=== PATIENT | female | born 1940 | race Two or more races ===

== ENCOUNTER → 2017-12-10 | Outpatient (CLI) | payer OTHER, MEDICAID | LOC: FIMAGING 14:39 | DX: M51.34 Other intervertebral disc degeneration, thoracic region (principal) ==

== ENCOUNTER 2018-02-05 02:03 | Inpatient (IN) | payer OTHER, MEDICAID ==
[2018-02-05] MEDS ORDERED: NS 1,000 ML IV ONE (02:31)
[2018-02-05 02:51] LABS: PLATELET COUNT 351 10^3/uL (150-400)
--- NOTE | 2018-02-05 04:01 | EDPHY ---
H & P Stated Complaint: LETHARGIC SINCE THIS MARTIN AB, WBC TODAY: 20, HAS DNR Time Seen by Provider: 02/05/18 02:18 HPI/ROS: HPI The patient presents with generalized fatigue and lethargy for the last 2-3 days. She is brought in by ambulance from [facility] where she has been residing for over a year after a stroke. She has been more tired than usual. Normally she is awake and oriented, however lately she has been speaking softly and seems more tired. Some basic labs were checked today and she was found have a leukocytosis, thus she was sent to the emergency department for further evaluation. Her son who visits her daily says that her energy level does seem very low. He has been encouraging her to drink fluids, however she has had difficulty with this. As he says this reminds him of when she has had urinary tract infections in the past. She has a MOST form with her indicating she is comfort measures only. I discussed this with her son as antibiotics are not usually indicated with comfort measures. He says that if there is an easily reversible cause such as urinary tract infection that she would want to be treated. Patient is able to agree with this. REVIEW OF SYSTEMS 10 systems were reviewed and negative with the exception of the elements mentioned in the history of present illness. PMHx: History of CVA Soc Hx: Resides at [facility] PHYSICAL General Appearance: Tired appearing in no acute distress, speaks in quiet voice Eyes: Pupils equal and round no pallor or injection ENT, Mouth: Mucous membranes dry Respiratory: There are no retractions, lungs are clear to auscultation Cardiovascular: Regular rate and rhythm Gastrointestinal: Abdomen is soft and non-tender, no masses, bowel sounds normal Neurological: A&O, moves all extremities Skin: Warm and dry, no rashes Musculoskeletal: Neck is supple non tender Extremities: symmetrical, full range of motion Psychiatric: Patient is oriented X 3, there is no agitation Source: Patient, Family, Old records Exam Limitations: No limitations - Personal History Current Tetanus/Diphtheria Vaccine: Unsure - Medical/Surgical History Hx Asthma: No Hx Chronic Respiratory Disease: No Hx Diabetes: Yes Hx Cardiac Disease: Yes Hx Renal Disease: Yes Hx Cirrhosis: No Hx Alcoholism: No Hx HIV/AIDS: No Hx Splenectomy or Spleen Trauma: No Other PMH: CVA- L SIDE WEAK, CAD, DIABETES, HTN, HYPOTHYROID, HYPERCHOL, AMS, HYPERKALEMIA Constitutional: Initial Vital Signs O2 Sat (%) 96 02/05/18 01:55 O2 Delivery Mode Nasal Cannula O2 (L/minute) 2 Allergies/Adverse Reactions: No Known Allergies Allergy (Unverified 02/05/18 02:19) Home Medications: Medication Instructions Recorded levOFLOXACIN [Levofloxacin] 750 mg PO DAILY #7 tablet 02/05/18 Medical Decision Making Differential Diagnosis: This is a 77-year-old female status post CVA, requiring help with her transfers , alert and oriented usually, also history of hypertension, diabetes, hyperlipidemia who presents from [facility] where she has been living for the last year or so with decreased mental status for the last several days though worse tonight. Blood work was done at [facility] and patient was found to have a leukocytosis of 20,000. She was sent here for further care and is brought in by ambulance. Here, vital signs are normal, patient does appear quite tired and lethargic. Her exam is unremarkable otherwise. We discussed goals of care with her son who visits her daily, he would like us to perform basic laboratory testing to check for easily reversible causes of the patient's weakness. Here, leukocytosis was confirmed. BUN is quite elevated at 70 and creatinine is also elevated to 1.8. UA shows evidence of urinary tract infection, and per nursing report urine was quite opaque. The patient was treated here with IV fluids and ceftriaxone. Her mental status did improve after receiving the fluids, then she fell asleep for several hours. Our initial plan was for her to be discharged home because she appeared to be getting stronger after receiving fluids, however after sleeping for several hours and awakening, she was once again weak. Her son would not be able to safely transport her back to her custodial. We discussed risks and benefits of admission in the goals of her care and we plan to admit her to the hospital at this point. I have consulted with Dr. Oseguera of the hospitalist service and have ordered the patient a hospital bed. - Data Points Laboratory Results: Laboratory Results 02/05/18 02:10 02/05/18 02:10 02/05/18 02/05/18 02/05/18 02:50 02:10 02:10 WBC 20.37 10^3/uL H 10^3/uL (3.80-9.50) RBC 3.22 10^6/uL L 10^6/uL (4.18-5.33) Hgb 9.5 g/dL L g/dL (12.6-16.3) Hct 29.3 % L % (38.0-47.0) MCV 91.0 fL fL (81.5-99.8) MCH 29.5 pg pg (27.9-34.1) MCHC 32.4 g/dL g/dL (32.4-36.7) RDW 13.7 % % (11.5-15.2) Plt Count 351 10^3/uL 10^3/uL (150-400) MPV 8.7 fL fL (8.7-11.7) Neut % (Auto) 76.0 % H % (39.3-74.2) Lymph % (Auto) 12.9 % L % (15.0-45.0) [place] % (Auto) 8.1 % % (4.5-13.0) Eos % (Auto) 2.1 % % (0.6-7.6) Baso % (Auto) 0.2 % L % (0.3-1.7) Nucleat RBC Rel Count 0.0 % % (0.0-0.2) Absolute Neuts (auto) 15.48 10^3/uL H 10^3/uL (1.70-6.50) Absolute Lymphs (auto) 2.63 10^3/uL 10^3/uL (1.00-3.00) Absolute Monos (auto) 1.65 10^3/uL H 10^3/uL (0.30-0.80) Absolute Eos (auto) 0.43 10^3/uL H 10^3/uL (0.03-0.40) Absolute Basos (auto) 0.04 10^3/uL 10^3/uL (0.02-0.10) Absolute Nucleated RBC 0.00 10^3/uL 10^3/uL (0-0.01) Immature Gran % 0.7 % % (0.0-1.1) Immature Gran # 0.14 10^3/uL H 10^3/uL (0.00-0.10) RBC/WBC/PLT Morphology TNP Platelet Estimate TNP Sodium 137 mEq/L mEq/L (135-145) Potassium 4.9 mEq/L mEq/L (3.5-5.2) Chloride 111 mEq/L H mEq/L (97-110) Carbon Dioxide 17 mEq/l L mEq/l (22-31) Anion Gap 9 mEq/L mEq/L (6-14) BUN 70 mg/dL H mg/dL (7-23) Creatinine 1.8 mg/dL H mg/dL (0.6-1.0) Estimated GFR 27 Glucose 90 mg/dL mg/dL (70-100) Calcium 8.5 mg/dL mg/dL (8.5-10.4) Urine Color YELLOW Urine Appearance TURBID Urine pH 5.0 (5.0-7.5) Ur Specific [place] 1.023 (1.002-1.030) Urine Protein 1+ H (NEGATIVE) Urine Ketones NEGATIVE (NEGATIVE) Urine Blood 1+ H (NEGATIVE) Urine Nitrate NEGATIVE (NEGATIVE) Urine Bilirubin NEGATIVE (NEGATIVE) Urine Urobilinogen NEGATIVE EU EU (0.2-1.0) Ur Leukocyte Esterase 1+ H (NEGATIVE) Urine RBC 50-182 /hpf H /hpf (0-3) Urine WBC 50-182 /hpf H /hpf (0-3) Ur Epithelial Cells NONE SEEN /lpf /lpf (NONE-1+) Urine Bacteria 4+ /hpf H /hpf (NONE SEEN) Urine Glucose NEGATIVE (NEGATIVE) Medications Given: Discontinued Medications Sodium Chloride (Ns) 1,000 mls @ 0 mls/hr IV EDNOW ONE; Wide Open PRN Reason: Protocol Stop: 02/05/18 02:32 Last Admin: 02/05/18 02:55 Dose: 1,000 mls Ceftriaxone Sodium/Dextrose (Rocephin 1 Gm (Premix)) 50 mls @ 100 mls/hr IV EDNOW ONE PRN Reason: Protocol Stop: 02/05/18 06:56 Last Admin: 02/05/18 06:31 Dose: 50 mls Departure - Departure Disposition: [facility] Clinical Impression: Weakness, Uremia Altered mental status Qualifiers: Altered mental status type: somnolence Qualified Code(s): R40.0 - Somnolence UTI (urinary tract infection) Qualifiers: Urinary tract infection type: site unspecified Hematuria presence: with hematuria Qualified Code(s): N39.0 - Urinary tract infection, site not specified Condition: Fair Instructions: Dehydration (ED), Urinary Tract Infection in Older Adults (ED) Additional Instructions: The patient must drink plenty of water, at least 8 8 oz glasses and the course of a 24 hr period. Her labs today showed that she was dehydrated and had a urinary tract infection. She was given 2 L of saline in her IV as well as a dose of ceftriaxone. She will need to start antibiotics later today and I have written a prescription for this. If she desires to, she can return to the emergency department for treatment at any time. Referrals: [facility] [Other] - As per Instructions Prescriptions: levOFLOXACIN [Levofloxacin] 750 mg PO DAILY #7 tablet
[2018-02-05] MEDS ORDERED: NS 1,000 ML IV SCH ×2 (07:45→09:00)
[2018-02-05] MEDS ORDERED: ONDANSETRON DISINTEGRATING 4 MG TAB PO PRN (08:54)
[2018-02-05] MEDS ORDERED: ONDANSETRON 4 MG/2 ML VIAL IVP PRN (08:54)
[2018-02-05] MEDS ORDERED: NS 1,900 ML IV ONE (08:59)
--- NOTE | 2018-02-05 09:39 | GHP ---
DATE OF ADMISSION: 02/05/2018 CHIEF COMPLAINT: Lethargy. HISTORY OF PRESENT ILLNESS: A 77-year-old female who resides at [facility]. I am seeing her with he r son, who provides most of the history as she is quite lethargic. She does awaken to a soft sternal rub. Apparently this week, she has been more lethargic and sleepy. Her son initially described guero sahu as non-responsive; however, he has revised it to say that she is responsive, however, just quite ti red. She has had urinary tract infections in the past. However, she usually can describe that she h as one. She does tell me that she does not have any dysuria. She has resided at [facility] since she had a stroke about a year ago. She does have some residual l eft-sided weakness that is not terribly significant, per her son. He feels as though depression has been limiting a lot of her recovery, and she has not been very participatory with her therapies. She has had multiple urinary tract infections, which has sometimes required more than 1 course of ronal atment. Her son is never aware that she has had a resistant bacteria, and she has never needed a ful l course of IV antibiotics. In the emergency department, she urinated idania pus. This has been sent for culture. PAST MEDICAL/SURGICAL HISTORY: 1. CVA. 2. Diabetes mellitus. 3. Neuropathy. 4. Ankle surgery. 5. Cholecystectomy. MEDICATIONS: Please see medication reconciliation. ALLERGIES: No known drug allergies. FAMILY HISTORY: There is vascular disease in her family. SOCIAL HISTORY: She resides at [facility]. She does not drink or smoke. She is accompanied by her son, who is very involved in her care. REVIEW OF SYSTEMS: Really not obtainable given her current condition. PHYSICAL EXAM: VITAL SIGNS: Blood pressure is 140/64, heart rate 88, respiration rate 18, saturatin g 96% on 2 L. Temperature 36.1. GENERAL: The patient is a lethargic female who is sleeping. She i s awoken. HEENT: Shows her to have a mild left-sided facial droop, which her son says is chronic. CARDIOVASCULAR: Regular rate and rhythm. No murmurs, rubs, or gallops. PULMONARY: Lungs are clear to auscultation bilaterally. ABDOMEN: Exam shows her to have some suprapubic tenderness. Otherwis e, she is soft and nontender throughout the rest of her abdomen. SKIN: Exam shows no rash. : Ex am shows no Roberto. NEUROLOGIC: Exam shows her to be alert and oriented x3. She is moving all extre mities. PSYCHIATRIC: Exam shows a normal mood and affect. LABS: White count is 20.3, with 76% neutrophils. Hemoglobin is 9.5. Bicarb is 17. Creatinine is 1 .8. Urinalysis shows 50-182 whites, as well as reds. She has leukocyte esterase, as well as 4+ bact eria. DATA: Discussed with Dr. Kitchen. IMPRESSION: This is a 77-year-old female with urinary tract infection, encephalopathy, and sepsis. 1. Severe sepsis: This is evidenced by encephalopathy, as well as elevated creatinine in the settin g of a urinary tract infection. Will check lactate, provide her with IV fluids. 2. Metabolic encephalopathy: She is extremely lethargic off her baseline. Her son confirms this. This is due to urinary tract infection. 3. Urinary tract infection: Never had a resistant bacteria in the past. Will treat her with Roceph in. Would consider broadening her to cefepime if she does not have a good clinical response. Urine culture is pending. 4. Goals of care. She is comfort-based care and do not resuscitate; however, son feels that her com fort cannot be met at [facility]. Thus, we are admitting her. I think this is reasonable. 5. Diabetes: Will reconcile her meds when these are finished. 6. History of a stroke: She does have some residual left-sided weakness. Will continue her vascula r medications when these are reconciled. 7. Code status: Do not resuscitate. I reviewed her MOLST form. 8. Venous thromboembolism risk is high. Will put her on heparin. /[id number]/MODL
[2018-02-05] MEDS ORDERED: POLYETHYLENE GLYCOL 3350 17 GM PKT PO PRN (14:22)
[2018-02-05] MEDS ORDERED: DICLOFENAC SODIUM 1% 100 GM GEL TP PRN (14:22)
[2018-02-05] MEDS ORDERED: SENNOSIDES/DOCUSATE SODIUM TAB PO PRN (14:22)
[2018-02-05] MEDS: HEPARIN 5,000 UNIT/0.5 ML INJ SC SCH ×2 (14:58→22:20)
--- NOTE | 2018-02-05 16:12 | PDMN ---
Medical Necessity Medical necessity: Pt meets INPT criteria per MD as of 02/05/18 and MCG M-300 UTI (est. LOS >2 MN for eval/mgmt of UTI with severe sepsis, metabolic encephalopathy; hx DM, CVA).
[2018-02-05] MEDS: ACETAMINOPHEN 325 MG TAB PO PRN (19:07)
[2018-02-05] MEDS: DULoxetine 30 MG CAP PO SCH (20:07)
[2018-02-05] MEDS: PRAVASTATIN SODIUM 20 MG TAB PO SCH (20:07)
[2018-02-05] MEDS ORDERED: INSULIN GLARGINE 100 UNITS/ML UNIT SC SCH (21:00)
[2018-02-06] MEDS: LEVOTHYROXINE 75 MCG TAB PO SCH (05:48)
[2018-02-06] MEDS: HEPARIN 5,000 UNIT/0.5 ML INJ SC SCH ×3 (05:48→21:44)
[2018-02-06 06:00] LABS: PLATELET COUNT 409 10^3/uL (150-400)
[2018-02-06] MEDS ORDERED: D50W 25 GM/50 ML SYR IVP PRN (06:41)
[2018-02-06] MEDS ORDERED: LR 1,000 ML IV SCH (07:00)
--- NOTE | 2018-02-06 09:56 | HOSPPROG ---
Hospitalist Progress Note Assessment/Plan: # UTI - cont rocephin; UCx not convincing but urine was idania pus per ED report - will not adjust abx at this time, cont rocephin # severe sepsis with encephalopathy and renal failure d/t UTI # metabolic encephalopathy d/t sepsis - slowly improving but not as baseline pre son # renal failure - better with IVF - continue # NAGMA - d/t renal failure, possibly ND - cont LR # DM2 with hypoglycemia today - received D10 - much better - cont glargine at lower dose # L sided weakness - suspect stroke recrudescence, but quite marked - check MRI brain # neck pain - will also check MRI of c-spine # CVA - cont asa/statin; MRI as above # DVT ppx - heparin # DNT Subjective: still very weak; was more alert yesterday, today less alert; hypoglycemic this am with diaphoresis Objective: Vital Signs Temp Pulse Resp BP Pulse Ox 36.4 C 120 H 20 130/68 H 94 02/06/18 07:35 02/06/18 07:35 02/06/18 07:35 02/06/18 07:35 02/06/18 07:35 Laboratory Results 02/06/18 05:05 02/06/18 05:05 02/05/18 02/06/18 02/07/18 05:59 05:59 05:59 Intake Total 2150 Output Total 700 Balance 1450 high risk ICD10 Worksheet Patient Problems: Problems Problem Status Onset Altered mental status Acute Weakness Acute UTI (urinary tract infection) Acute Uremia Acute
[2018-02-06] MEDS: PANTOPRAZOLE SODIUM 40 MG TAB PO SCH (10:18)
[2018-02-06] MEDS: DULoxetine 30 MG CAP PO SCH ×2 (10:18→21:44)
[2018-02-06] MEDS: ASPIRIN EC 81 MG TAB PO SCH (10:18)
[2018-02-06] MEDS ORDERED: IOPAMIDOL (ISOVUE 370) 100 ML BTL IV ONE (16:03)
--- NOTE | 2018-02-06 18:13 | HOSPPROG ---
Hospitalist Progress Note Assessment/Plan: Cross cover note: Reviewed CTA head/neck--notable for 60% stenosis on left carotid bulb, < 50% stenosis on right without other significant stenosis and presumably these are incidental findings and not the cause for patients right mal ischemic CVA. Discussed these findings with patients daughter present at bedside and answered questions regarding what that likely implies including that patient does not require urgent surgical intervention and that patient is not clearly an AC candidate either. Neurology to eval patient in am. Objective: Vital Signs Temp Pulse Resp BP Pulse Ox 36.4 C 95 16 124/63 H 96 02/06/18 15:52 02/06/18 15:52 02/06/18 15:52 02/06/18 15:52 02/06/18 15:52 Laboratory Results 02/06/18 05:05 02/06/18 05:05 02/05/18 02/06/18 02/07/18 05:59 05:59 05:59 Intake Total 2150 Output Total 700 Balance 1450 ICD10 Worksheet Patient Problems: Problems Problem Status Onset Altered mental status Acute Weakness Acute UTI (urinary tract infection) Acute Uremia Acute
[2018-02-06] MEDS: INSULIN GLARGINE 100 UNITS/ML UNIT SC SCH (21:44)
[2018-02-06] MEDS: PRAVASTATIN SODIUM 20 MG TAB PO SCH (21:45)
[2018-02-07 05:11] LABS: PLATELET COUNT 422 10^3/uL (150-400)
[2018-02-07] MEDS: HEPARIN 5,000 UNIT/0.5 ML INJ SC SCH ×3 (05:46→20:53)
[2018-02-07] MEDS: LEVOTHYROXINE 75 MCG TAB PO SCH (05:46)
[2018-02-07] MEDS: ASPIRIN EC 81 MG TAB PO SCH (08:27)
[2018-02-07] MEDS: PANTOPRAZOLE SODIUM 40 MG TAB PO SCH (08:27)
[2018-02-07] MEDS: DULoxetine 30 MG CAP PO SCH ×2 (08:27→20:52)
--- NOTE | 2018-02-07 10:43 | ECHO ---
[email or web address] [address] [address] Main: [phone] Fax: Transthoracic Echocardiogram Name: VICKEY RICHARDSON MR#: [id number] Study Date: 02/07/2018 Study Time: 09:51 AM Date of : 1940 Age: 77 year(s) Height: 162.6 cm (64 in.) Weight: 63.5 kg (140 lb.) BSA: 1.68 m2 Gender: Female Examination: Echo with Agitated Saline Indication: ischemic stroke Image Quality: Adequate Contrast: Requested by: Manuel Barrientos BP: 163 mmHg/83 mmHg Heart Rate: Rhythm: Indication: ischemic stroke Procedure Staff Contour Stitcher: Vikki Ramsey RDCS Reading Physician: Bayron Martin MD Requesting Provider: Conclusions: Normal size left ventricle. Mild concentric LV hypertrophy. Normal global systolic LV function. EF is 67 %. No regional wall motion abnormality. Normal RV function. The left atrium is normal in size. An agitated saline study was performed and was negative for intracardiac shunting. The right atrium is normal in size. The mitral valve is normal in appearance and function. The aortic valve is tri-leaflet. Normal size ascending aorta measuring 3.0 cm. No cardiac source of ischemic stroke on transthoracic echo. Measurements: Chambers Valvular Assessment AV/MV Valvular Assessment TV/PV Normal Normal Normal Name Value Range Name Value Range Name Value Range Ao Radha (2D): 2.7 cm (1.4 cm-2.6 AV Vmax: 1.39 m/s (1 m/s-1.7 PV Vmax: 0.94 m/s (0.6 m/s-0.9 cm) m/s) m/s) IVSd (2D): 1.1 cm (0.6 cm-1.1 AV maxP mmHg ( - ) PV PGmax: 4 mmHg ( - ) cm) AV meanP mmHg ( - ) LVDd (2D): 4.2 cm (3.9 cm-5.3 NIDIA (VTI): 2.4 cm ( - ) cm) MV E Vmax: 0.77 m/s ( - ) LVDs (2D): 3.1 cm (2.1 cm-4 MV A Vmax: 1.25 m/s ( - ) cm) MV E/A: 0.62 ( - ) LVPWd (2D): 1.1 cm ( - ) MV PHT: 0.048 s ( - ) LVOTd 1.9 cm 1.9 cm mm MVA (PHT): 4.6 s ( - ) LVEF (BP): 67 % (>=55 %) Patient: VICKEY RICHARDSON Study Date: 02/07/2018 Page 1 of 2 09:51 AM RVDd(2D): 2.8 cm (1.9 cm-3.8 cmmm) Continued Measurements: Chambers Valvular Assessment AV/MV Name Value Name Value LADs: 2.8 cm MV DecTime: 144 m/s LADs Lon.6 cm MV E' Septal: 0.08 m/s LA Area: 13.1 cm2 MV E/E' Septal: 9.30 LA Volume: 29 ml MV E/E' Lateral: 9.90 LA Volume Index: 17.3 ml/m2 RA Area: 9.8 cm2 Additional Vessels Name Value Ao Ascendin.0 cm Inferior Vena Cava: 1.3 cm Findings: Left Ventricle: Normal size left ventricle. Mild concentric LV hypertrophy. Normal global systolic LV function. EF is 67 %. No regional wall motion abnormality. Normal diastolic LV function. Right Ventricle: Normal size right ventricle. Normal RV function. Left Atrium: The left atrium is normal in size. An agitated saline study was performed and was negative for intracardiac shunting. Right Atrium: The right atrium is normal in size. Mitral Valve: The mitral valve is normal in appearance and function. Mild mitral valve regurgitation is present. No mitral stenosis is present. Aortic Valve: The aortic valve is tri-leaflet. Trivial aortic valve regurgitation. No aortic valve stenosis is present. Tricuspid Valve: The tricuspid valve is normal in appearance and function. Trivial tricuspid valve regurgitation. Pulmonic Valve: The pulmonic valve is normal in appearance and function. There is no pulmonic regurgitation seen. Aorta: The aorta is normal. Normal size aortic root measuring 2.7 cm. Normal size ascending aorta measuring 3.0 cm. IVC: The IVC is normal sized. Pericardium: No pericardial effusion. No pleural effusion. (No Signature Object) Patient: VICKEY RICHARDSON Study Date: 02/07/2018 Page 2 of 2 09:51 AM [id number]
--- NOTE | 2018-02-07 11:02 | HOSPPROG ---
Hospitalist Progress Note Assessment/Plan: 77 yo F w uti, acute/subacute cva CVA: R mal not a tPA candidate CTA head and neck w no targets for intervention, marcia beyond that window too no AF tele (inter by me) echo OK on aspirin, probably reasonable tochange to plavix UTI - cont rocephin; UCx not convincing but urine was idania pus per ED report - will not adjust abx at this time, cont rocephin severe sepsis with encephalopathy and renal failure d/t UTI septic physiology has resolved metabolic encephalopathy d/t sepsis - slowly improving but not as baseline pre son renal failure - better with IVF - continue cr trending to baseline NAGMA - d/t renal failure, possibly ND - cont LR DM2 with hypoglycemia today - received D10 - much better - cont glargine at lower dose neck pain - will also check MRI of c-spine imaging unremarkable DVT ppx - heparin DNR Subjective: alert, but having pain. MRI w brainstem stroke (images reviewed by me) Objective: Vital Signs Temp Pulse Resp BP Pulse Ox 36.6 C 98 17 163/83 H 95 02/07/18 08:00 02/07/18 08:00 02/07/18 08:00 02/07/18 08:00 02/07/18 08:00 Laboratory Results 02/07/18 03:42 02/07/18 03:42 02/06/18 02/07/18 02/08/18 05:59 05:59 05:59 Intake Total 2150 1200 Output Total 700 Balance 1450 1200 - Physical Exam Constitutional: no apparent distress, appears nourished Eyes: PERRL, anicteric sclera Ears, Nose, Mouth, Throat: moist mucous membranes, hearing normal Cardiovascular: regular rate and rhythym, no murmur, rub, or gallop Respiratory: no respiratory distress, no rales or rhonchi Gastrointestinal: normoactive bowel sounds, soft, non-tender abdomen Genitourinary: no bladder fullness, No quinn in urethra Skin: warm, normal color Musculoskeletal: No full muscle strength Neurologic: No AAOx3 Psychiatric: No interacting appropriately ICD10 Worksheet Patient Problems: Problems Problem Status Onset Altered mental status Acute UTI (urinary tract infection) Acute Uremia Acute Weakness Acute
--- NOTE | 2018-02-07 11:39 | ASMTCMCOM ---
CM Note CM Note Notes: Case Management Chart Review for Discharge Support: Patient is 77 y/o female presented to [facility] ED with fatigue and lethargy for 2-3 days. Past medical history includes: CVA with left sided weakness, Coronary Artery Disease, Diabetes, Hypertension, Hypothyroid, Hyperkalemia. Son Shaan was present in ED & provided most of history. Patient admitted for UTI, Sepsis with encephelopathy and renal failure, Dehydration. Patient has Medicare & Medicaid for health coverage, listed as DNR. Brain & C Spine MRI ordered today. CM to follow. D/C Plan: Return to [facility]. Updates sent to in [employer] Date Signed: 02/07/2018 11:38 AM Electronically Signed By:STEVE Hogue
--- NOTE | 2018-02-07 13:14 | NEUROPROG ---
Assessment: HOSPITAL NEUROLOGY CONSULT REQUESTING: Manuel Barrientos MD REASON: stroke HPI: 77 year old SNF resident with a history of HTN, HLD, DM prior stroke with left- sided residua who presented to the hospital with lethargy. She was noted by family and SNF staff to be barely arousable on day of admit. In the ED she was found to have leukocytosis and she was urinating idania pus. She has been on ABX and her UCX is growing jalyn and >100k GBS. Her mental status has been slowly improving but she is still not back to baseline. MRI brain wo was done and showed a punctate acute infarct in the anterior right pontomedullary junction. There was perhaps some indication of worsening left-sided weakness prior to admission. ROS: As per the HPI, otherwise a complete 12 point ROS was performed and is negative ALLERGIES AND MEDS: As recorded in the EMR - reviewed and reconciled PFSH: As per the intake H&P by Dr. Barrientos from 02/05 EXAM: VS reviewed in EMR GEN: WDWN laying in NAD She is laying in bed with eyes closed. She wakes to name. She is not oriented. She tends to perseverate. The speech is nondysarthric. She does not have any obvious language dysfunction. She has poor attention. Follows commands with encouragement. Attends to both sides. Pupils 3mm round reactive. Unable to visualize fundi. She tracks horizontally with full motility. She blinks to threat OU. She sates facial sensation is symmetric. Left nasolabial fold flat. Palatoglossal movements intact. She will not participate in formal segmental motor testing. Has no drift in RUE, but drifts down to bed in LUE. She will activate the legs, but they both do not get off the bed. She endorses symmetric sensation in the extremities. Her plantars are equivocal. No clonus. DTRs are brisker on the left. DATA REVIEW: Labs reviewed in EMR PERSONALLY INTERPRETED RESULTS AND DATA: MRI brain wo - punctate acute infarct in the right anterior pontomedullary junction. CTA head/neck - 60% LICA stenosis, 50% ERWIN stenosis, otherwise patent vessels. LDL 33 TTE - preserved EF, no mass/shunt/valve veg IMPRESSION AND RECOMMENDATIONS: Patient with sepsis, acute stroke and encephalopathy. She does have some left- sided weakness - not sure of her baseline - no family available. Certainly the new stroke could cause left-sided weakness to worsen. Stroke would not account for her encephalopathy, though. This is likely from her sepsis/UTI. From a stroke standpoint, stroke appears small vessel in origin. I would recommend escalating her antiplatelet to clopidogrel. Cont home statin as LDL is at goal. Maintain normoglycemia with A1c < 6.5 and avoid hypoglycemia. Normotension, balance with sepsis risk. PT/OT/[employer]MENT[employer]ER. Encephalopathy seems to be improving, but she is not back to baseline per report. Ongoing toxic/metabolic/infectious optimization with primary team. Delirium precautions. Will sign off. Recall PRN. Objective: Vital Signs Temp Pulse Resp BP Pulse Ox 36.6 C 91 14 147/76 H 96 02/07/18 11:41 02/07/18 11:41 02/07/18 11:41 02/07/18 11:41 02/07/18 11:41 Laboratory Results 02/07/18 03:42 02/07/18 03:42 02/06/18 02/07/18 02/08/18 05:59 05:59 05:59 Intake Total 2150 1200 Output Total 700 Balance 1450 1200 Allergies/Adverse Reactions: No Known Allergies Allergy (Unverified 02/05/18 02:19)
[2018-02-07] MEDS: PRAVASTATIN SODIUM 20 MG TAB PO SCH (20:53)
[2018-02-07] MEDS: INSULIN GLARGINE 100 UNITS/ML UNIT SC SCH (21:00)
[2018-02-08] MEDS: LEVOTHYROXINE 75 MCG TAB PO SCH (05:28)
[2018-02-08] MEDS: HEPARIN 5,000 UNIT/0.5 ML INJ SC SCH ×3 (05:28→21:35)
[2018-02-08] MEDS: ACETAMINOPHEN 325 MG TAB PO PRN (08:25)
[2018-02-08] MEDS: CLOPIDOGREL BISULFATE 75 MG TAB PO SCH (08:25)
[2018-02-08] MEDS: DULoxetine 30 MG CAP PO SCH ×2 (08:25→20:35)
[2018-02-08] MEDS: PANTOPRAZOLE SODIUM 40 MG TAB PO SCH (08:26)
--- NOTE | 2018-02-08 08:27 | HOSPPROG ---
Hospitalist Progress Note Assessment/Plan: 77 yo F w uti, acute/subacute cva CVA: R mal not a tPA candidate CTA head and neck w no targets for intervention, marcia beyond that window too no AF tele (inter by me) echo OK changed to plavix UTI - cont rocephin; UCx not convincing but urine was idania pus per ED report - will not adjust abx at this time, cont rocephin urine stil lw a great deal of sediment will do pelvis CT 02/09 to eval for perivesicular abscess want to space out contrast severe sepsis with encephalopathy and renal failure d/t UTI septic physiology has resolved metabolic encephalopathy d/t sepsis - slowly improving but not as baseline pre son renal failure - better with IVF - continue cr trending to baseline NAGMA follow off IVF DM2 with hypoglycemia today - received D10 - much better - cont glargine at lower dose neck pain - will also check MRI of c-spine imaging unremarkable DVT ppx - heparin DNR Subjective: more alert this AM. urine w a lot of sediment Objective: Vital Signs Temp Pulse Resp BP Pulse Ox 36.6 C 89 15 150/65 H 97 02/08/18 04:00 02/08/18 04:00 02/08/18 04:00 02/08/18 04:00 02/08/18 04:00 Laboratory Results 02/07/18 03:42 02/07/18 03:42 02/07/18 02/08/18 02/09/18 05:59 05:59 05:59 Intake Total 1200 300 Output Total 450 Balance 1200 -150 - Physical Exam Constitutional: no apparent distress, appears nourished Eyes: PERRL, anicteric sclera Ears, Nose, Mouth, Throat: moist mucous membranes, hearing normal Cardiovascular: regular rate and rhythym, no murmur, rub, or gallop Respiratory: no respiratory distress, no rales or rhonchi Gastrointestinal: normoactive bowel sounds, soft, non-tender abdomen Genitourinary: No quinn in urethra Skin: warm, normal color Musculoskeletal: other (L sided weakness), No full muscle strength Neurologic: sensation intact bilaterally, No AAOx3 ICD10 Worksheet Patient Problems: Problems Problem Status Onset Altered mental status Acute UTI (urinary tract infection) Acute Uremia Acute Weakness Acute
[2018-02-08] MEDS: INSULIN GLARGINE 100 UNITS/ML UNIT SC SCH (20:35)
[2018-02-08] MEDS: PRAVASTATIN SODIUM 20 MG TAB PO SCH (20:35)
[2018-02-09] MEDS: HEPARIN 5,000 UNIT/0.5 ML INJ SC SCH ×3 (05:46→22:08)
[2018-02-09] MEDS: LEVOTHYROXINE 75 MCG TAB PO SCH (05:46)
[2018-02-09] MEDS: CLOPIDOGREL BISULFATE 75 MG TAB PO SCH (08:04)
[2018-02-09] MEDS: DULoxetine 30 MG CAP PO SCH ×2 (08:04→22:08)
[2018-02-09] MEDS: PANTOPRAZOLE SODIUM 40 MG TAB PO SCH (08:04)
--- NOTE | 2018-02-09 09:22 | HOSPPROG ---
Hospitalist Progress Note Assessment/Plan: 77 yo F who resides at [facility], admitted with sepsis 2/2 uti, along with acute/subacute cva CVA: R mal, not a tPA candidate. CTA head and neck w no targets for intervention -cont telemetry, no a fib here (pers reviewed) -echo OK -changed to plavix UTI - UCx polymicrobial, note purulent urine on arrival - cont rocephin, follow Cx data - pelvis CT to eval for perivesicular abscess today severe sepsis with encephalopathy and renal failure d/t UTI - septic physiology resolved metabolic encephalopathy d/t sepsis - slowly improving, still only oriented x1 renal failure - Cr normalized with IVF's NAGMA - improving DM2 with hypoglycemia yest (BG 52) - s/p D10, bg's now 100's - cont glargine at lower dose (now on 10 u from home dose 35) neck pain - MRI of c-spine unremarkable DVT ppx - heparin DNR Dispo - cont inpt, plan to return to [facility], [facility] when ready Subjective: Pt is up in chair, feels tired. She is oriented to person only. Denies pain. No fevers. Objective: Vital Signs Temp Pulse Resp BP Pulse Ox 36.5 C 80 15 136/52 H 98 02/09/18 07:30 02/09/18 07:30 02/09/18 07:30 02/09/18 07:30 02/09/18 07:30 Laboratory Results 02/07/18 03:42 02/09/18 04:26 02/08/18 02/09/18 02/10/18 05:59 05:59 05:59 Intake Total 300 500 Output Total 450 800 Balance -150 -300 - Physical Exam Constitutional: no apparent distress Eyes: PERRL Ears, Nose, Mouth, Throat: moist mucous membranes Cardiovascular: regular rate and rhythym Respiratory: no respiratory distress Gastrointestinal: normoactive bowel sounds, soft, non-tender abdomen Skin: warm Musculoskeletal: generalized weakness Neurologic: other (A&O x1) Psychiatric: poor insight, poor memory ICD10 Worksheet Patient Problems: Problems Problem Status Onset Altered mental status Acute Weakness Acute UTI (urinary tract infection) Acute Uremia Acute
[2018-02-09] MEDS ORDERED: IOPAMIDOL (ISOVUE-300) 100 ML BTL ONE (14:57)
[2018-02-09] MEDS: ACETAMINOPHEN 325 MG TAB PO PRN (18:41)
[2018-02-09] MEDS: INSULIN GLARGINE 100 UNITS/ML UNIT SC SCH (22:08)
[2018-02-09] MEDS: PRAVASTATIN SODIUM 20 MG TAB PO SCH (22:08)
[2018-02-10] MEDS: LEVOTHYROXINE 75 MCG TAB PO SCH (05:58)
[2018-02-10] MEDS: HEPARIN 5,000 UNIT/0.5 ML INJ SC SCH ×3 (05:59→23:09)
[2018-02-10] MEDS: CLOPIDOGREL BISULFATE 75 MG TAB PO SCH (10:06)
[2018-02-10] MEDS: DULoxetine 30 MG CAP PO SCH ×2 (10:06→23:12)
[2018-02-10] MEDS: ACETAMINOPHEN 325 MG TAB PO PRN (10:06)
[2018-02-10] MEDS: PANTOPRAZOLE SODIUM 40 MG TAB PO SCH (10:07)
--- NOTE | 2018-02-10 12:24 | ASMTCMCOM ---
CM Note CM Note Notes: D/c plan of care remains return to [facility] where pt resides, updates sent to in [employer]. Date Signed: 02/10/2018 12:24 PM Electronically Signed By:STEVE Hogue
--- NOTE | 2018-02-10 13:24 | HOSPPROG ---
Hospitalist Progress Note Assessment/Plan: 77 yo F who resides at [facility], admitted with sepsis 2/2 uti, along with acute/subacute cva. First encounter, chart reviewed. D/W Dr Aarna #CVA: -R mal, not a tPA candidate. CTA head and neck w no targets for intervention -cont telemetry, no a fib here -echo OK -changed to plavix #UTI - UCx polymicrobial, note purulent urine on arrival - cont rocephin, follow Cx data - pelvis CT to eval for perivesicular abscess shows obstruction with stones and possible mass -will get an ultrasound in the morning to attempt further diagnostic evaluation -keep quinn in #severe sepsis with encephalopathy -sepsis resolved #renal failure -d/t UTI -possible obstruction #metabolic encephalopathy -d/t sepsis -CVA -slowly improving #NAGMA - improving #DM2 with hypoglycemia (BG 52) - s/p D10, bg's now 100's - cont glargine at lower dose (now on 10 u from home dose 35) #neck pain - MRI of c-spine unremarkable #Nephrolithiasis -follow #Hematuria -US #DVT ppx - heparin #DNR -may need to consider palliative at [facility] #Dispo - cont inpt, plan to return to SNF, [facility] when ready -further evaluation of bladder Subjective: No pain. Minimal verbal interaction. Daughter at bedside. Objective: Vital Signs Temp Pulse Resp BP Pulse Ox 36.8 C 81 16 142/76 H 95 02/10/18 11:40 02/10/18 11:40 02/10/18 11:40 02/10/18 11:40 02/10/18 11:40 Laboratory Results 02/07/18 03:42 02/09/18 04:26 02/09/18 02/10/18 02/11/18 05:59 05:59 05:59 Intake Total 500 400 Output Total 800 1400 Balance -300 -1000 - Physical Exam Constitutional: not in pain, chronically ill appearing, No obese Eyes: PERRL, anicteric sclera, EOMI Ears, Nose, Mouth, Throat: moist mucous membranes, hearing normal, ears appear normal Cardiovascular: regular rate and rhythym, No JVD, No edema Respiratory: no respiratory distress, reduced air movement Gastrointestinal: normoactive bowel sounds, No tenderness, No ascites Genitourinary: quinn in urethra Skin: warm, normal color, No mottled Musculoskeletal: no joint effusions, generalized weakness, No normal joint ROM Neurologic: weakness Psychiatric: not anxious, poor insight, poor judgement, poor memory ICD10 Worksheet Patient Problems: Problems Problem Status Onset Altered mental status Acute Weakness Acute UTI (urinary tract infection) Acute Uremia Acute
[2018-02-10] MEDS: PRAVASTATIN SODIUM 20 MG TAB PO SCH (23:09)
[2018-02-10] MEDS: INSULIN GLARGINE 100 UNITS/ML UNIT SC SCH (23:40)
[2018-02-11] MEDS ORDERED: NS 1,000 ML IV ONE (02:24)
[2018-02-11] MEDS: HEPARIN 5,000 UNIT/0.5 ML INJ SC SCH ×3 (05:46→22:36)
[2018-02-11] MEDS: ACETAMINOPHEN 325 MG TAB PO PRN (05:47)
[2018-02-11] MEDS: LEVOTHYROXINE 75 MCG TAB PO SCH (05:47)
[2018-02-11] MEDS: CLOPIDOGREL BISULFATE 75 MG TAB PO SCH ×4 (10:03→17:42)
[2018-02-11] MEDS: DULoxetine 30 MG CAP PO SCH ×5 (10:03→20:55)
[2018-02-11] MEDS: PANTOPRAZOLE SODIUM 40 MG TAB PO SCH ×4 (10:03→17:42)
--- NOTE | 2018-02-11 13:04 | HOSPPROG ---
Hospitalist Progress Note Assessment/Plan: 77 yo F who resides at [facility], admitted with sepsis 2/2 uti, along with acute/subacute cva. First encounter, chart reviewed. #CVA (r mal) -was not a tPA candidate -now on Plavix -echo stable -tele shows sinus #UTI - UCx polymicrobial, purulent urine on arrival -dc Ceftriaxone - pelvis CT showed obstruction with stones and possible mass -ultrasound shows uniformly thick-walled bladder. Query cystitis or neurogenic bladder. No stones and no bladder wall mas. Moderate bilateral hydronephrosis. -leave quinn in, call to urology #severe sepsis with encephalopathy -sepsis resolved #renal failure -d/t UTI #metabolic encephalopathy -d/t sepsis -CVA -slowly improving -she know she lives at [facility], knows she had a stroke #NAGMA -check labs in a.m. #DM2 with hypoglycemia (BG 52) - cont glargine at lower dose (now on 10 u from home dose 35) #neck pain - MRI of c-spine unremarkable #Hematuria #DVT ppx - heparin #plan: - cont inpt, plan to return to SNF, [facility] when ready -further evaluation of bladder - message left for urology -ordered palliative care, she is declining to eat, take meds, doesn't want water, and wants to be left alone Subjective: Monique is upset, doesn't want to take her medications. Objective: Vital Signs Temp Pulse Resp BP Pulse Ox 36.9 C 75 16 140/80 H 96 02/11/18 11:29 02/11/18 11:29 02/11/18 11:29 02/11/18 11:29 02/11/18 11:29 Laboratory Results 02/07/18 03:42 02/09/18 04:26 02/10/18 02/11/18 02/12/18 05:59 05:59 05:59 Intake Total 400 250 Output Total 1400 2000 Balance -1000 -1750 - Physical Exam Constitutional: chronically ill appearing Eyes: PERRL Ears, Nose, Mouth, Throat: hearing normal Cardiovascular: regular rate and rhythym Respiratory: no respiratory distress Skin: warm Musculoskeletal: generalized weakness Neurologic: other (alert and oriented to herself and where she lives) Psychiatric: depressed, poor insight, poor judgement, poor memory ICD10 Worksheet Patient Problems: Problems Problem Status Onset Altered mental status Acute UTI (urinary tract infection) Acute Uremia Acute Weakness Acute
[2018-02-11] MEDS: INSULIN GLARGINE 100 UNITS/ML UNIT SC SCH (20:55)
[2018-02-11] MEDS: PRAVASTATIN SODIUM 20 MG TAB PO SCH (20:56)
[2018-02-12] MEDS: LEVOTHYROXINE 75 MCG TAB PO SCH (06:27)
[2018-02-12] MEDS: HEPARIN 5,000 UNIT/0.5 ML INJ SC SCH ×3 (06:27→22:02)
--- NOTE | 2018-02-12 08:52 | HOSPPROG ---
Hospitalist Progress Note Assessment/Plan: 77 yo F who resides at [facility], admitted with sepsis 2/2 uti, along with acute/subacute cva. #CVA (r mal) -was not a tPA candidate -now on Plavix -echo stable -tele shows sinus #UTI - UCx polymicrobial, purulent urine on arrival -dc Ceftriaxone, received full treatment *bilateral hydronephrosis, thickened bladder -reviewed her care w Dr Garcia -recommendation is to leave quinn in, will need a cystoscopy #severe sepsis with encephalopathy -sepsis resolved #renal failure -d/t UTI #metabolic encephalopathy -d/t sepsis -CVA -slowly improving -she know she lives at [facility], knows she had a stroke #NAGMA -check labs in a.m. #DM2 with hypoglycemia (BG 52) - cont glargine at lower dose (now on 10 u from home dose 35) #neck pain - MRI of c-spine unremarkable #Hematuria #DVT ppx - heparin #plan: -Palliative care ordered, she is declining to eat or drink, doesn't want an IV. Will address these issues prior to cystoscopy. Appreciate Dr Garcia. Subjective: Monique says she wants to be left alone. Objective: Vital Signs Temp Pulse Resp BP Pulse Ox 36.5 C 79 14 129/73 H 94 02/12/18 08:00 02/12/18 08:00 02/12/18 08:00 02/12/18 08:00 02/12/18 08:00 Laboratory Results 02/07/18 03:42 02/12/18 05:00 02/11/18 02/12/18 02/13/18 05:59 05:59 05:59 Intake Total 250 350 Output Total 1999 1350 Balance -1750 -1000 - Physical Exam Constitutional: no apparent distress, appears nourished, not in pain, chronically ill appearing Eyes: PERRL Ears, Nose, Mouth, Throat: hearing normal Cardiovascular: regular rate and rhythym Respiratory: no respiratory distress Genitourinary: quinn in urethra (urine slightly tea colored tinged) Skin: warm Neurologic: other (alert but doesn't want to talk) Psychiatric: depressed ICD10 Worksheet Patient Problems: Problems Problem Status Onset Altered mental status Acute UTI (urinary tract infection) Acute Uremia Acute Weakness Acute
[2018-02-12] MEDS: DULoxetine 30 MG CAP PO SCH ×2 (09:55→22:03)
[2018-02-12] MEDS: PANTOPRAZOLE SODIUM 40 MG TAB PO SCH (09:55)
[2018-02-12] MEDS: CLOPIDOGREL BISULFATE 75 MG TAB PO SCH (09:55)
[2018-02-12] MEDS ORDERED: POTASSIUM CL 10 MEQ TAB PO ONE (12:30)
--- NOTE | 2018-02-12 17:05 | ASMTCMCOM ---
CM Note CM Note Notes: Spoke with pt's son, Shaan, and two daughters. Pt resides at [facility] after CVA and left sided weakness. Pt admitted for UTI and sepsis. Pt now refusing to eat or drink and hospitalist has placed an order for Palliative care consult as pt does not have immediate diagnosis for hospice consult. CM spoke with the family and provided education about the differences between palliative and hospice. Family stated they are interpreting pt's actions as a readiness to pass and are willing to consider both palliative and hospice, as appropriate. CM spoke with [facility] and confirmed that they are contracted with [facility], [facility] and [facility], all of which offer Palliative and Hospice care. CM awaiting response from son on choice of agencies to schedule palliative consult either here in the hospital or at [facility] upon discharge. [facility] has been updated regarding plans. CM to follow. Referrals not yet sent for Palliative or Hospice D/C Plan: [facility] with hospice or palliative care pending eval Date Signed: 02/12/2018 05:04 PM Electronically Signed By:Anastasia Melvin
[2018-02-12] MEDS ORDERED: NS 1,000 ML IV SCH (19:00)
[2018-02-12] MEDS: INSULIN GLARGINE 100 UNITS/ML UNIT SC SCH (22:02)
[2018-02-12] MEDS: PRAVASTATIN SODIUM 20 MG TAB PO SCH (22:03)
[2018-02-13] MEDS: LEVOTHYROXINE 75 MCG TAB PO SCH (06:08)
[2018-02-13] MEDS: HEPARIN 5,000 UNIT/0.5 ML INJ SC SCH ×2 (06:08→14:23)
[2018-02-13] MEDS: CLOPIDOGREL BISULFATE 75 MG TAB PO SCH (10:10)
[2018-02-13] MEDS: DULoxetine 30 MG CAP PO SCH (10:10)
[2018-02-13] MEDS: PANTOPRAZOLE SODIUM 40 MG TAB PO SCH (10:11)
--- NOTE | 2018-02-13 11:00 | PDIAF ---
- Diagnosis Diagnosis: CVA Code Status: Do Not Resuscitate - Medication Management Discharge Medications: electronically signed and located in the Home Medication List. - Orders Services needed: Registered Nurse, Physical Therapy, Occupational Therapy Diet Recommendation: no restrictions on diet Diet Texture: Dysphagia 3 - Advanced - Moist, Bite-Size, Thin Liquids, Meds Whole in Puree Additional Instructions: The patient must drink plenty of water, at least 8 8 oz glasses and the course of a 24 hr period. Her labs today showed that she was dehydrated and had a urinary tract infection. She was given 2 L of saline in her IV as well as a dose of ceftriaxone. She will need to start antibiotics later today and I have written a prescription for this. If she desires to, she can return to the emergency department for treatment at any time. - Follow Up Care Current Providers and Referrals: [facility] [Other] - As per Instructions
--- NOTE | 2018-02-13 11:31 | ASMTLACE ---
LACE Length of stay for Answers: 7-13 days current admission Acuity / Level of Answers: Yes Care: Did the patient have an inpatient admission? Comorbidities - select Answers: Cerebrovascular disease all that apply (CVA, TIA, aneurysms, vasc ular dementia) # of Emergency department Answers: 0 visits in the last 6 months Score: 9 Date Signed: 02/13/2018 11:30 AM Electronically Signed By:Tg Yousif RN
[2018-02-13 12:46] VITALS: BP 160/76
--- NOTE | 2018-02-13 13:44 | GDS ---
DISCHARGE DIAGNOSES: 1. Cerebrovascular accident. 2. Urinary tract infection. 3. Bilateral hydronephrosis with bladder thickening. 4. Severe sepsis with encephalopathy. 5. Renal failure. 6. Metabolic encephalopathy. 7. Diabetes mellitus, type 2. 8. Neck pain. 9. Hematuria. CONSULTATIONS: Neurology. PHYSICAL EXAM: GENERAL: The patient is alert. VITAL SIGNS: Afebrile at 36.9, pulse 86, respirator y rate is 18, blood pressure is 160/76. She is saturating 95% on room air. I have seen evaluated th e patient on the day of discharge. HOSPITAL COURSE: The patient is a 77-year-old female who normally resides at [facility] presents wit h acute confusion. She was evaluated and diagnosed with: 1. CVA. During this hospitalization, she received a consultation from Neurology with workup being d one. She has been placed on Plavix and will continue this at the time of disposition. She does have residual deficits. 2. Urinary tract infection. This is polymicrobial. During this hospital course, she received Rocep hin and this has been discontinued after full treatment. 3. Bilateral hydronephrosis with thickened bladder. The etiology of this is unclear. Roberto cathete r has been placed and she will require cystoscopy in the outpatient setting. 4. Severe sepsis with encephalopathy. This has resolved. 5. Renal failure. This is the setting of an urinary tract infection. This is improved. 6. Metabolic encephalopathy. This is multifactorial. The patient is close to her baseline. 7. Diabetes mellitus type 2. Medications have been continued. DISPOSITION: She will be discharged to return to [facility] where she normally resides. Further [facility] n of care will be established with [facility] considering palliative care versus hospice or continued therapies. This will be deferred to the family and the patient. DISCHARGE MEDICATIONS: Please refer to EMR form. I have not provided any prescriptions for the john ent at the time of disposition. FOLLOWUP: Will be with primary care provider, as well as Neurology as needed and Urology. I spent greater than 35 minutes in the care, coordination, and management of the patient's dispositio n. /[id number]/MODL
== END 2018-02-13 15:00 | DRG 871 ==
LOC: EDUNIT# → F3E 11:57 → F3N 02-06 18:09 → F2N 02-07 17:20 → F3N 02-09 09:35
PROVIDERS: ADMIT Student in an Organized Health Care Education/Training Program; ATTEND Student in an Organized Health Care Education/Training Program
DX: A41.9 Sepsis, unspecified organism (principal); R65.20 Severe sepsis without septic shock; N39.0 Urinary tract infection, site not specified; G93.41 Metabolic encephalopathy; I63.9 Cerebral infarction, unspecified; N17.9 Acute kidney failure, unspecified; N13.30 Unspecified hydronephrosis; E87.2 Acidosis; E11.649 Type 2 diabetes mellitus with hypoglycemia without coma; M54.2 Cervicalgia; E11.40 Type 2 diabetes mellitus with diabetic neuropathy, unspecified; I25.10 Atherosclerotic heart disease of native coronary artery without angina pectoris; I10 Essential (primary) hypertension; E03.9 Hypothyroidism, unspecified; E78.5 Hyperlipidemia, unspecified; I69.354 Hemiplegia and hemiparesis following cerebral infarction affecting left non-dominant side; Z66 Do not resuscitate
CPT/HCPCS: 92507-GN; 92523-GN; 92610-GN; 96365; 97162-GP; 97166-GO; 97530-GO; 97530-GP; G8978-GP-CM; G8979-GP-CL; G8987-GO-CM; G8988-GO-CL; G8996-GN-CJ; G8997-GN-CH; J0696; J1644; J1815; Q9967